=== PATIENT | female | born 1990 ===

== ENCOUNTER 2021-05-05 13:08 | Emergency (ER) | payer MEDICAID ==
[~2021-05-05] VITALS: Ht 170.2 cm; Wt 68.0 kg
[2021-05-05 17:43] VITALS: BP 122/71
== END 2021-05-05 17:56 | disposition home or self-care (01) ==
LOC: ER 13:08
DX: U07.1 COVID-19 (principal); J40 Bronchitis, not specified as acute or chronic
CPT/HCPCS: 71045